=== PATIENT | male | born 1975 | race African-American/Black ===

== ENCOUNTER 2020-01-01 03:12 | Inpatient (IN) | payer OTHER ==
[~2020-01-01] VITALS: Ht 170.2 cm; Wt 73.3 kg
--- NOTE | 2020-01-01 03:12 | NUR ---
Direct Admit Note: Patient admitted to unit as a direct admit per MD order. Patient oriented to primary RN, unit, room, bed, and unit policies regarding patient care and visiting hours. Patient placed on bedside oxygen 4L NC and SPO2 currently 94%, respirations even and unlabored Bed in lowest locked position with two side rails raised and call rios within reach, guards at the bedside. Patient weighed by bed scale and encouraged to call if they need something. Instructed on POC. All questions and concerns addressed, patient verbalized understanding. MD notified of patients arrival and admit orders received.
[2020-01-01 03:30] VITALS: BP 150/95
[2020-01-01] MEDS ORDERED: AMLO5TAB15 PO (05:21)
[2020-01-01] MEDS ORDERED: LISI-275 PO (05:21)
[2020-01-01] MEDS ORDERED: NITROGLYCERIN 0.4 MG SL TAB SL PRN (05:30)
[2020-01-01] MEDS ORDERED: MORPHINE SULF INJ 2 MG/ML SYRINGE 1ML IV PRN (05:30)
[2020-01-01] MEDS ORDERED: cloNIDine HCL 0.1 MG TAB PO PRN (05:30)
--- NOTE | 2020-01-01 07:36 | NUR ---
RT NOTE: WENT TO PTS ROOM TO ASSESS FOR BREATHING TX, PT IS ON 4L NC, SPO2 92%, HR 80, RR 16, WILL CONTINUE TO MONITOR PT. NO S/S OF SOB.
[2020-01-01 08:03] LABS: Basophils # (auto) 0 10 ^3/uL (0-0.2); Basophils % (auto) 0.3 % (0.0-2.0); Eosinophils # (auto) 0 10 ^3/uL (0-0.8); Hematocrit 40.5 % (41.0-53.0); Hemoglobin 13.7 g/dL (13.5-17.5); Lymphocytes # (auto) 0.3 10 ^3/uL (0.4-5.4); Lymphocytes % (auto) 2.3 % (10.0-50.0); Mean Corpuscular Hemoglobin 29.1 pg (28.0-32.0); Mean Corpuscular Hgb Conc. 33.8 g/dL (32.0-36.0); Monocytes # (auto) 0.5 10 ^3/uL (0-1.3); Monocytes % (auto) 4.3 % (0.0-12.0); Neutrophils % (auto) 93.1 % (37.0-80.0); Nucleated Red Blood Cells % 0.1 %; Platelet Count (auto) 346 10^3/uL (140-450); Red Blood Cells 4.71 10^6/uL (4.5-5.90); Red Cell Distribution Width 12.7 % (11.8-14.3); White Blood Cell 11.8 10^3/uL (4.4-10.8)
[2020-01-01 08:17] LABS: INR 1.03 (0.9-1.15)
[2020-01-01 08:27] LABS: BUN/Creatinine Ratio 14.5; Calcium 8.1 mg/dL (8.5-10.1); Potassium 3.7 mmol/L (3.5-5.1)
[2020-01-01 09:00] VITALS: BP 134/88
[2020-01-01 09:30] VITALS: BP 134/88
[2020-01-01] MEDS ORDERED: ENOXAPARIN SOD 80 MG/0.8ML SYRINGE SC SCH (10:00)
[2020-01-01] MEDS: AZITHROMYCIN 250 MG TAB PO SCH (11:56)
[2020-01-01] MEDS: ZINC SULFATE 220mg CAP or TAB PO SCH (11:56)
[2020-01-01] MEDS: cefTRIAXone 1GM/50ML D5W 50 ML IV SCH (11:56)
[2020-01-01 13:00] VITALS: BP_SYST 109; BP_SYST 136; BP_SYST 146; BP_DIAS 72; BP_DIAS 89; BP_DIAS 97
--- NOTE | 2020-01-01 19:18 | NUR ---
OPENING SHIFT NOTE: Assumed care of patient. Patient awake, alert and oriented x 4. No s/s of SOB or distress and patient denies pain. Bed in lowest locked position with two side rails raised and call rios within reach. Guards at the bedside. Instructed on POC and encouraged to call for assistance, all questions and concerns addressed, patient verbalizes understanding. Will continue to monitor Q1 hr and PRN.
[2020-01-01 22:00] VITALS: BP 149/87
[2020-01-01] MEDS: ENOXAPARIN SOD 40 MG/0.4 ML SYRINGE SC SCH (22:00)
--- NOTE | 2020-01-01 22:10 | NUR ---
SPOKE WITH PHARMACIST TO CLARIFY ORDER FOR LOVENOX 40 MG DUE AT 1900, PATIENT RECEIVED 80 MG DURING DAY. PER PHARMACIST OK TO HOLD 40 MG LOVENOX UNTIL TOMORROW. WILL HOLD 1900 40 MG LOVENOX.
[2020-01-01] MEDS: ALBUTEROL SULF HFA 90MCG INH 200DOSE IN SCH (22:35)
--- NOTE | 2020-01-01 22:35 | NUR ---
Respiratory note: MDI HELD AT THIS TIME AWAITING COVID RESULTS AT THIS TIME, NO DISTRESS NOTED, PULSE OX 94% ON 4LNC ,HR 87, RR 18
[2020-01-02 05:00] VITALS: BP 144/89
[2020-01-02] MEDS: ALBUTEROL SULF HFA 90MCG INH 200DOSE IN SCH (07:07)
--- NOTE | 2020-01-02 07:50 | NUR ---
OPENING SHIFT NOTE Assumed care of patient. PT is awake and a&ox4. No SOB or s/s of distress at this time. Guards are at bedside. Instructed on plan of care and encouraged patient to call for assistance as needed, patient verbalized understanding. Bed is locked in lowest position, side rails x 2 are up, call light is within reach, and bed alarm is on.
[2020-01-02 09:00] VITALS: BP 139/86
[2020-01-02] MEDS: ENOXAPARIN SOD 40 MG/0.4 ML SYRINGE SC SCH (10:02)
[2020-01-02] MEDS: cefTRIAXone 1GM/50ML D5W 50 ML IV SCH (10:02)
[2020-01-02] MEDS: ZINC SULFATE 220mg CAP or TAB PO SCH (10:02)
[2020-01-02] MEDS: AZITHROMYCIN 250 MG TAB PO SCH (10:03)
[2020-01-02 13:00] VITALS: BP 149/93
--- NOTE | 2020-01-02 16:34 | NUR ---
PTS NOVEL BAJWA VIRUS TEST RESULTED NEGATIVE. SPOKE TO CHARGE NURSE. INSTRUCTED TO KEEP PT IN HIS OWN ROOM AND AWAIT MD ROUNDING FOR FURTHER INSTRUCTIONS.
[2020-01-02 17:00] VITALS: BP 141/94
--- NOTE | 2020-01-02 18:05 | NUR ---
AT BEDSIDE. INSTRUCTED TO DC O2. PLACED PT ON RA. PT SATURATING AT 94% ON RA. INSTRUCTED TO NOTIFY STAFF OF ANY S/S OF SOB. WILL CONTINUE TO MONITOR.
--- NOTE | 2020-01-02 18:38 | NUR ---
SPOKE TO MD. MD INSTRUCTED TO TRANSFER PT TO FLOOR. WILL NOTIFY CHARGE NURSE.
--- NOTE | 2020-01-02 19:43 | NUR ---
Transfer in from [facility] unit per wheelchair, awake alert oriented x 4, placed in the bed comfortably, inmate.
[2020-01-02 21:46] VITALS: BP 156/96
[2020-01-03 04:41] VITALS: BP 142/83
--- NOTE | 2020-01-03 07:19 | NUR ---
Care report given to Karyna Gracia, patient is resting no distress.
--- NOTE | 2020-01-03 08:00 | NUR ---
ASSESSMENT NOTE PT IS ALERT ORIENTED X4, RESTING IN BED COMFORTABLY, HEAD OF BED ELEVATED, ABLE TO SELF REPOSITION AND VERBALIS HIS DEMANDS, ROOM AIR 92%, PT GET SHORTNESS OF BREATH ON EVERSION, PAIN 0/10, HAND METAL CUFF NOTED AT THE LEFT WRIEST, NO DISTRESS NOTED, PNE GUARD AT BED SIDE AT ALL TIMES
--- NOTE | 2020-01-03 08:30 | NUR ---
BM PT IS OUT OF BED TO BATHROOM, THEN BACK TO BED, SHORTNESS OF BREATH NOTED, PT ON ROOM AIR AT 88%, RESPIRATORY THERAPY AT BED SIDE WITH OXYGEN AT 4 L NC, CONTINUE MONITORING
[2020-01-03] MEDS: ZINC SULFATE 220mg CAP or TAB PO SCH (08:38)
[2020-01-03] MEDS: ENOXAPARIN SOD 40 MG/0.4 ML SYRINGE SC SCH (08:39)
[2020-01-03] MEDS: AZITHROMYCIN 250 MG TAB PO SCH (08:39)
[2020-01-03 08:50] VITALS: BP 144/110
[2020-01-03] MEDS: cefTRIAXone 1GM/50ML D5W 50 ML IV SCH (09:00)
--- NOTE | 2020-01-03 11:34 | NUR ---
Est energy needs 7234-7896 kcal (25-27kcal/kg BW 77.2kg) Est protein needs 62-77g (0.8-1g/kg BW 77.2kg) Will reassess prn. Addendum: 01/03/20 at [address] Amended: Links added.
[2020-01-03 12:50] VITALS: BP 143/90
[2020-01-03 16:51] VITALS: BP 141/90
--- NOTE | 2020-01-03 18:46 | NUR ---
PT CONTINUE STABLE, CONTINUE MONITORING
--- NOTE | 2020-01-03 19:30 | NUR ---
Opening Shift Note Assumed care of patient, awake and alert. No S/S of distress/SOB or pain. Instructed on POC and to call for assist PRN, will continue to monitor for changes Q1hr and PRN.
[2020-01-03 20:00] VITALS: BP 136/88
[2020-01-03 22:00] VITALS: BP 136/88
[2020-01-04 05:42] VITALS: BP 131/82
[2020-01-04 09:00] VITALS: BP 124/80
[2020-01-04] MEDS: ZINC SULFATE 220mg CAP or TAB PO SCH (09:15)
[2020-01-04] MEDS: AZITHROMYCIN 250 MG TAB PO SCH (09:15)
[2020-01-04] MEDS: cefTRIAXone 1GM/50ML D5W 50 ML IV SCH (09:15)
[2020-01-04] MEDS: ENOXAPARIN SOD 40 MG/0.4 ML SYRINGE SC SCH (09:16)
[2020-01-04 13:00] VITALS: BP_SYST 121; BP_SYST 132; BP_DIAS 69; BP_DIAS 74
[2020-01-04 17:00] VITALS: BP 136/91
[2020-01-04 20:00] VITALS: BP 137/95
[2020-01-04 22:00] VITALS: BP 137/95
[2020-01-04] MEDS ORDERED: ALBUTEROL SULF 2.5 MG/0.5ML(0.5%) NEB SOLN NEB PRN (22:00)
[2020-01-04] MEDS ORDERED: IPRATROPIUM BROM 0.5 MG/2.5ML INH SOL NEB PRN (22:00)
--- NOTE | 2020-01-04 23:27 | NUR ---
patient transferred to room 246a. report given to asher.
--- NOTE | 2020-01-04 23:30 | NUR ---
CALLED TO BEDSIDE TO ASSESS PT.
--- NOTE | 2020-01-04 23:32 | NUR ---
AT BEDSIDE TO ASSESS PT. PT STATES HE IS SOB. BS ARE FINE COURSE WHEEZES T/O MORE PROMINENT IN THE LEFT. DUE TO PT BEING R/O FOR COVID AND BEING AN INMATE, PT IS UNABLE TO TAKE A NEBULIZED BREATHING TX, PT HAS GUARD AT BEDSIDE AND GUARD MUST BE IN PTS ROOM AT ALL TIMES. WE ARE UNABLE TO ADMINISTER NEBULIZED TX AT THIS TIME DUE TO EXPOSURE. PT DOES NEED ALBUTEROL AT THIS TIME.
--- NOTE | 2020-01-04 23:40 | NUR ---
CALLED PLANTING MACHINE OPERATOR REGARDING NEED FOR ALBUTEROL MDI FOR INMATE PT.
--- NOTE | 2020-01-04 23:45 | NUR ---
RT LEAD SCHUYLER Olmos COMMUNICATED NEED FOR ALBUTEROL MDI FOR THIS PT. RT LEAD WILL CALL ALEX Olmos FOR MDI.
[2020-01-05] VITALS (8 sets, daily range): BP systolic 124–143; BP diastolic 54–98
[2020-01-05] MEDS ORDERED: ALBUTEROL SULFATE 90 MCG MDI IN ONE (00:13)
[2020-01-05] MEDS: ALBUTEROL SULF HFA 90MCG INH 200DOSE IN SCH ×4 (00:32→22:57)
--- NOTE | 2020-01-05 07:50 | NUR ---
OPENING NOTE ASSUMED CARE OF PT. ALERT AND ORIENTED. NO S/S OF SOB/DISTRESS NOTED. BED SET TO LOWEST POSITION/LOCKED. BEDSIDE RAILS UP X2. CALL LIGHT WITHIN REACH. INSTRUCTED PT TO CALL FOR ASSISTANCE. UPDATED PT ON POC. PT VERBALIZED UNDERSTANDING. WILL CONTINUE TO MONITOR Q1HR AND PRN.
[2020-01-05] MEDS: cefTRIAXone 1GM/50ML D5W 50 ML IV SCH (09:33)
[2020-01-05] MEDS: AZITHROMYCIN 250 MG TAB PO SCH (09:33)
[2020-01-05] MEDS: ZINC SULFATE 220mg CAP or TAB PO SCH (09:33)
[2020-01-05] MEDS: ENOXAPARIN SOD 40 MG/0.4 ML SYRINGE SC SCH (09:33)
--- NOTE | 2020-01-05 12:18 | NUR ---
COVID SWAB COVID SWAB COLLECTED AND WALKED TO LAB BY BHANU ().
--- NOTE | 2020-01-05 20:10 | NUR ---
Opening Shift Note Assumed care of patient, awake and alert. No S/S of distress/SOB or pain. Guards at bedside. Instructed on POC and to call for assist PRN, will continue to monitor for changes Q1hr and PRN.
[2020-01-06 05:00] VITALS: BP 126/87
--- NOTE | 2020-01-06 07:40 | NUR ---
COVID SWAB RECEIVED CALL FROM [employer] ( [facility] ). TECH WAS VERIFYING IF PATIENT HAD BEEN SWABBED LAST NIGHT FOR COVID, SHE STATED THEY HAD A SWAB LABELED WITH TIME 1153. THIS NURSE INFORMED HER THAT SWAB WAS FROM YESTERDAY MORNING 01/05/20. SWAB WAS COLLECTED BY THIS NURSE AND WALKED/LOGGED IN BY BHANU ().
[2020-01-06] MEDS: ALBUTEROL SULF HFA 90MCG INH 200DOSE IN SCH ×3 (07:52→21:07)
[2020-01-06 08:00] VITALS: BP 134/95
[2020-01-06] MEDS: cefTRIAXone 1GM/50ML D5W 50 ML IV SCH (09:27)
[2020-01-06] MEDS: AZITHROMYCIN 250 MG TAB PO SCH (09:27)
[2020-01-06] MEDS: ENOXAPARIN SOD 40 MG/0.4 ML SYRINGE SC SCH (09:27)
[2020-01-06] MEDS: ZINC SULFATE 220mg CAP or TAB PO SCH (09:27)
[2020-01-06 12:00] VITALS: BP 129/83
--- NOTE | 2020-01-06 15:15 | NUR ---
Nutrition Followup Notes Pt wt is 74.1 kg Unable to speak to pt d/t pt is positive for COVID. Pt is with a Regular diet, appetite is good [address] 88% PO intake over 4 meals per RN doc. Est energy needs 6524-6178 kcal (25-27kcal/kg BW 77.2kg) Est protein needs 62-77g (0.8-1g/kg BW 77.2kg) Will reassess prn. LABS: GLUC 137 H, CA 8.1 L GI: Pt had 1 BM on 01/04 per RN doc BS: 21 low risk. Refer to wound assessment report for full details. PES: No current Nutritional Pr Comments 1) Continue to monitor po intake, labs, skin 2) refer pt to [facility] on DC 3) Continue current plan of care
[2020-01-06 17:00] VITALS: BP 142/97
--- NOTE | 2020-01-06 19:15 | NUR ---
OPENING SHIFT NOTE: Assumed care of patient. Patient awake, alert and oriented x 4, no s/s of SOB or distress. Bed in lowest locked position with two side rails raised and call rios within reach. Guards at the bedside. Instructed on POC and encouraged to call for assistance, all questions and concerns addressed, patient verbalizes understanding. Will continue to monitor Q1 hr and PRN.
[2020-01-06 20:00] VITALS: BP 132/85
[2020-01-06 22:00] VITALS: BP 132/85
[2020-01-07 05:00] VITALS: BP 105/78
[2020-01-07] MEDS: ALBUTEROL SULF HFA 90MCG INH 200DOSE IN SCH ×3 (06:59→23:22)
--- NOTE | 2020-01-07 07:00 | NUR ---
ADMINISTERED SCHEDULED MDI THERAPY. HR 90, RR 18, SPO2 92% ON ROOM AIR. BREATH SOUNDS CLEAR/DIM. PT AWAKE AND ALERT, RESTING IN BED WITH NO S/S OF DISTRESS. GUARDS AT BEDSIDE.
[2020-01-07 08:00] VITALS: BP 131/84
[2020-01-07] MEDS: AZITHROMYCIN 250 MG TAB PO SCH (09:33)
[2020-01-07] MEDS: ZINC SULFATE 220mg CAP or TAB PO SCH (09:33)
[2020-01-07] MEDS: ENOXAPARIN SOD 40 MG/0.4 ML SYRINGE SC SCH (09:33)
[2020-01-07] MEDS: cefTRIAXone 1GM/50ML D5W 50 ML IV SCH (09:33)
[2020-01-07 12:00] VITALS: BP 128/76
--- NOTE | 2020-01-07 14:04 | NUR ---
O2 SATURATION PATIENT AMBULATED AROUND NURSES STATION WITH THIS NURSE ON ROOM AIR, O2 SATURATION 93%.
[2020-01-07 17:00] VITALS: BP 127/78
[2020-01-07 20:25] VITALS: BP 127/78
--- NOTE | 2020-01-07 21:15 | NUR ---
RECEIVED PATIENT FROM COVID UNIT VIA WHEELCHAIR. PATIENT TOLERATED WELL. NO S/S OF DISTRESS NOTED. DENIED PAIN. O2 SAT 93% ON 2L/NC. BED IN LOWEST POSITION WITH SIDE RAILS UP X 2. CALL AMADOR WITHIN REACH. GUARDS AT BEDSIDE. CONTINUE TO MONITOR FOR CHANGES Q1H AND PRN.
--- NOTE | 2020-01-07 21:15 | NUR ---
endorsed care to RN Masha
--- NOTE | 2020-01-08 02:36 | NUR ---
PATIENT SLEEPING. NO S/S OF DISTRESS NOTED. CONTINUE CARE
[2020-01-08 05:21] VITALS: BP 119/73
--- NOTE | 2020-01-08 08:00 | NUR ---
Opening Shift Note Assumed care of patient, awake and alert. No S/S of distress/SOB or pain. Snf guards at bedside. Instructed on POC and to call for assist PRN, will continue to monitor for changes Q1hr and PRN.
[2020-01-08 09:00] VITALS: BP 127/82
[2020-01-08] MEDS: ZINC SULFATE 220mg CAP or TAB PO SCH (09:34)
[2020-01-08] MEDS: ENOXAPARIN SOD 40 MG/0.4 ML SYRINGE SC SCH (09:34)
[2020-01-08] MEDS: AZITHROMYCIN 250 MG TAB PO SCH (09:34)
[2020-01-08] MEDS: cefTRIAXone 1GM/50ML D5W 50 ML IV SCH (09:35)
[2020-01-08] MEDS ORDERED: ALBUAER3 IN (12:43)
[2020-01-08 13:00] VITALS: BP 126/71
[2020-01-08 13:59] VITALS: BP 126/71
--- NOTE | 2020-01-08 15:28 | NUR ---
Discharge instructions given as ordered. Encourage to [facility] the [facility] as instructed. All questions and concerns addressed. Patient verbalized understanding. Medication reconciliation form completed and copy given to patient. IV removed with catheter intact, pressure dressing applied. Patient taken to vehicle via wheelchair with all personal belongings, accompanied [facility] guards. No distress noted at time of departure.
== END 2020-01-08 15:30 | DRG 177 ==
LOC: EAST 03:12 → EEVIPCON 03:12 → EDSEX 03:12 → EAST 16:38 → CENTRAL 01-02 19:43 → EAST 01-04 23:15 → CENTRAL 01-07 21:04
PROVIDERS: ADMIT Internal Medicine; ATTEND Internal Medicine
DX: U07.1 COVID-19 (principal); J12.89 Other viral pneumonia; I10 Essential (primary) hypertension; F17.210 Nicotine dependence, cigarettes, uncomplicated; Z83.3 Family history of diabetes mellitus; Z79.899 Other long term (current) drug therapy
CPT/HCPCS: 36415; 71045; 80048; 85025; 85379; 85610; 94640; G0378; J0696